=== PATIENT | male | born 2000 | race Two or more races ===

== ENCOUNTER 2021-10-23 01:06 | Emergency (ER) | payer SELFPAY ==
[~2021-10-23] VITALS: Ht 170.2 cm; Wt 61.2 kg
[2021-10-23] MEDS ORDERED: LORAZEPAM INJ 2 MG/ML VIAL ONE ×2 (01:17→04:02)
[2021-10-23] MEDS ORDERED: LORAZEPAM INJ 2 MG/ML VIAL IM ONE ×2 (01:30→04:30)
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
--- NOTE | 2021-10-23 01:40 | NUR ---
ER PANEL BUILDER AT BEDSIDE
[2021-10-23 01:55] LABS: BASOPHILS % (AUTO) 0.3 % (0.0-2.0); HEMATOCRIT 43 % (39-51); HEMOGLOBIN 14.3 g/dL (13.5-17.5); LYMPHOCYTES # (AUTO) 0.9 K/uL (0.8-4.8); LYMPHOCYTES % (AUTO) 9.8 % (20.0-44.0); MEAN CORPUSCULAR HGB CONC 33 g/dl (31.0-36.0); MEAN CORPUSCULAR VOLUME 84 fL (80-96); MONOCYTES # (AUTO) 0.9 K/uL (0.1-1.30); MONOCYTES % (AUTO) 10.1 % (2.0-12.0); NEUTROPHILS # (AUTO) 7.5 K/uL (1.8-8.9); NEUTROPHILS % (AUTO) 79.8 % (43.0-81.0); PLATELET COUNT (AUTO) 371 K/uL (150-450); RED BLOOD CELL COUNT(AUTO) 5.17 MIL/uL (4.5-6.0); WHITE BLOOD COUNT (AUTO) 9.4 K/uL (4.3-11.0)
[2021-10-23] MEDS ORDERED: diphenhydrAMINE HCL 50 MG/ML VIAL ONE (02:33)
[2021-10-23] MEDS ORDERED: diphenhydrAMINE HCL 50 MG/ML VIAL IM ONE (03:00)
[2021-10-23] MEDS ORDERED: diphenhydrAMINE HCL 50 MG/ML VIAL IV ONE (03:00)
[2021-10-23 03:03] LABS: CALCIUM, SERUM 9.7 mg/dL (8.5-10.1); CARBON DIOXIDE 26 mmol/L (21-32); CHLORIDE 100 mmol/L (98-107); CREATININE 1.5 mg/dL (0.6-1.3); GLUCOSE 127 mg/dL (74-106); POTASSIUM 3.2 mmol/L (3.5-5.1); SODIUM SERUM 142 mmol/L (136-145); UREA NITROGEN, BLOOD 12 mg/dL (7-18)
[2021-10-23 03:09] LABS: ALANINE AMINOTRANSFERASE 30 U/L (12-78); ALBUMIN 4.5 g/dL (3.4-5.0); ALCOHOL, BLOOD < 3 mg/dL (0-0); ALKALINE PHOSPHATASE 77 U/L (46-116); ASPARTATE AMINOTRANSFERASE 35 U/L (15-37); BILIRUBIN,DIRECT 0.3 mg/dL (0.0-0.2); BILIRUBIN,TOTAL 1.7 mg/dL (0.2-1.0); TOTAL PROTEIN, SERUM 8.5 g/dL (6.4-8.2)
[2021-10-23 03:11] LABS: ACETAMINOPHEN 0 ug/ml (10-30)
[2021-10-23] MEDS ORDERED: HALOPERIDOL LACTATE INJ 5 MG/ML VIAL ONE (03:17)
[2021-10-23] MEDS ORDERED: HALOPERIDOL LACTATE INJ 5 MG/ML VIAL IM ONE (03:30)
--- NOTE | 2021-10-23 04:16 | NUR ---
URINE SAMPLE OBTAINED AND SENT TO LAB
[2021-10-23 04:34] LABS: BILIRUBIN,URINE SMALL (NEGATIVE); COLOR,URINE YELLOW (YELLOW); LEUKOCYTE ESTERASE ,URINE SMALL (NEGATIVE); NITRITE, URINE POSITIVE (NEGATIVE); PROTEIN,URINE 100 mg/dl (NEGATIVE); UGLUCOSE NEGATIVE (NEGATIVE); UROBILINOGEN,URINE 0.2 EU/dL (0.2)
[2021-10-23 04:40] LABS: BACTERIA,URINE Many /HPF (None Seen); SQUAMOUS EPITHELIAL CELL,UR Few /HPF (None Seen); WBC,URINE 21-50 /HPF (0-3)
[2021-10-23] MEDS ORDERED: CIPR-262 PO (05:38)
[2021-10-23] MEDS ORDERED: CIPROFLOXACIN HCL 500 MG TABLET PO ONE (06:00)
--- NOTE | 2021-10-23 09:00 | NUR ---
Awake. Cooperative. Breakfast provided ate 100%
[2021-10-23] MEDS ORDERED: CIPROFLOXACIN HCL 500 MG TABLET ONE (09:26)
--- NOTE | 2021-10-23 09:30 | NUR ---
SW at bedside. Homeless resources given
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
[2021-10-23 10:05] VITALS: BP 135/75
--- NOTE | 2021-10-23 10:08 | NUR ---
Patient given written and verbal discharge instructions. Patient verbalizes understanding of instructions. Patient is ambulatory with steady gait. Refuses offer of long-term placement. Patient given list of available shelters in surrounding area.
== END 2021-10-23 10:07 | disposition home or self-care (01) ==
LOC: ER 01:16
DX: R46.2 Strange and inexplicable behavior (principal); F19.10 Other psychoactive substance abuse, uncomplicated; N39.0 Urinary tract infection, site not specified; Z20.822 Contact with and (suspected) exposure to COVID-19
CPT/HCPCS: 36415; 80048; 80076; 80143; 80307; 80320; 81001; 85025; 87077; 87086; 87186; 87426; 96372 ×2; 99284; C9803; J1200; J1630; J2060 ×2; G0480

== ENCOUNTER 2022-04-07 17:13 | Emergency (ER) | payer SELFPAY ==
[~2022-04-07] VITALS: Ht 182.9 cm; Wt 93.0 kg
[~2022-04-07 17:13] MED LIST: CIPR-262 PO
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
--- NOTE | 2022-04-07 17:25 | NUR ---
DR MENDEZ AT BEDSIDE FOR EVAL.
[2022-04-07] MEDS ORDERED: OLANZAPINE ZYDIS 5 MG TAB.RAPDIS ONE (17:52)
[2022-04-07] MEDS ORDERED: OLANZAPINE ZYDIS 5 MG TAB.RAPDIS PO ONE (18:00)
--- NOTE | 2022-04-07 18:10 | NUR ---
PT IS MEDICALLY CLEARED BY DR MENDEZ. DISCHARGED PAPER SIGNED BY OFFICER SARAHY OF [facility]. STATES WILL WAIT FOR BACK UP TO TAKE PATIENT.
[2022-04-07] MEDS ORDERED: OLANZAPINE 10 MG VIAL IM ONE (18:30)
[2022-04-07 19:12] VITALS: BP 138/90
== END 2022-04-07 19:13 ==
LOC: ER 17:15
DX: S00.81XA Abrasion of other part of head, initial encounter (principal); S80.212A Abrasion, left knee, initial encounter; Y08.89XA Assault by other specified means, initial encounter; Y93.89 Activity, other specified; Y92.89 Other specified places as the place of occurrence of the external cause; Y99.8 Other external cause status